=== PATIENT | female | born 1950 | race Caucasian/White ===

== ENCOUNTER 2017-09-28 10:37 | Day surgery (SDC) | payer MEDICARE, BC ==
[2017-09-28] MEDS ORDERED: Sodium Chloride 0.9% 10 ML Syringe FLUSH PRN (11:00)
[2017-09-28] MEDS ORDERED: Lactated Ringers 1,000 ML IV SCH (11:00)
[2017-09-28] MEDS ORDERED: fentaNYL 100 MCG/2 ML SDV ONE ×2 (11:29→11:31)
[2017-09-28] MEDS ORDERED: Midazolam 1 MG/ML 2 ML SDV ONE ×2 (11:29→11:31)
--- NOTE | 2017-09-28 11:29 | PCM.PN ---
- General Info Date of Service: 09/28/17 - Review of Systems Systems Review Comment:: 67-year-old female referred for her initial colonoscopy. She was recently discovered to have a positive FIT test. She is medically stable to proceed today. Her recent history and physical is reviewed and no significant changes are noted. I have discussed the proposed colonoscopy with the patient. Risks such as but not limited to bleeding and GI injury reviewed. She appears to understand and agrees to proceed. - Patient Data Vitals - Most Recent: Last Vital Signs Temp 97.1 F 09/28/17 11:00 Pulse 77 09/28/17 11:00 Resp 18 09/28/17 11:00 BP 131/31 L 09/28/17 11:00 Pulse Ox 95 09/28/17 11:00 Weight - Most Recent: 126.099 kg Lab Results Last 24 Hours: Laboratory Results - last 24 hr 09/28/17 Range/Units 11:13 POC Glucose 109 (65-110) mg/dl Med Orders - Current: Current Medications Lactated Ringer's (Ringers, Lactated) 1,000 mls @ 125 mls/hr IV ASDIRECTED REG Last Admin: 09/28/17 11:19 Dose: 125 mls/hr Sodium Chloride (Saline Flush) 10 ml FLUSH ASDIRECTED PRN PRN Reason: Keep Vein Open - Problem List Review Problem List Initiated/Reviewed/Updated: Yes - My Orders Last 24 Hours: My Active Orders 09/28/17 11:00 Patient Status [ADT] Routine Blood Glucose Check, Bedside [RC] ONETIME Peripheral IV Care [RC] . DIRECTED Verify Patient Consent Obtain [RC] ASDIRECTED Lactated Ringers [Ringers, Lactated] 1,000 ml IV ASDIRECTED Sodium Chloride 0.9% [Saline Flush] 10 ml FLUSH ASDIRECTED PRN Peripheral IV Insertion Adult [OM.PC] Routine - Assessment Assessment:: Positive FIT test - Plan Plan:: Colonoscopy
[2017-09-28] MEDS ORDERED: Propofol 200 MG/20 ML SDV ONE ×2 (11:30→11:31)
--- NOTE | 2017-09-28 12:15 | PCM.OPNOTE ---
- General Post-Op/Procedure Note Date of Surgery/Procedure: 09/28/17 Operative Procedure(s): Colonoscopy with polypectomy Findings: Multiple colon polyps Pre Op Diagnosis: Colon cancer screening. Positive FIT Post-Op Diagnosis: Colon polyps Anesthesia Technique: MAC Primary Surgeon: Nasir Barker Pathology: Colon polyps Output, Urine Amount: 0 EBL in mLs: 0 Complications: None Condition: Good Free Text/Narrative:: Intake & Output 09/27/17 09/28/17 09/28/17 22:59 06:59 14:59 Intake Total 700 Balance 700
[2017-09-28 12:48] VITALS: BP 121/47
--- NOTE | 2017-09-28 16:42 | OR ---
Date of Procedure: 09/28/2017 PREOPERATIVE DIAGNOSIS: Colon cancer screening, positive fecal immunochemical test. POSTOPERATIVE DIAGNOSIS: Multiple colon polyps. OPERATIONS PERFORMED: Colonoscopy with polypectomy. INDICATIONS FOR SURGERY: This 67-year-old female presents today for her initial screening colonoscopy. She was recently noted to have a positive stool FIT test. FINDINGS: On exam today, multiple polyps were noted. There was a 1.2 cm pedunculated polyp of the sigmoid colon, 15 cm from the anal verge; a 7-mm pedunculated polyp in the ascending colon; a 5-mm polyp in the transverse colon; and a 6-mm polyp in the distal transverse colon. There is also a 6-mm polyp noted at the splenic flexure. The remainder of the colon appeared normal. DESCRIPTION OF PROCEDURE: The patient was taken to the operating room. She was given intravenous sedation, and with her in the left lateral decubitus position, digital rectal exam was performed showing no rectal masses. The Olympus colonoscope was inserted into the rectum. Retroflexed examination of the rectal canal was performed. The scope was then carefully advanced under direct visualization through the entire length of the colon until the cecum was reached. Cecal acquisition was confirmed by noting the normal internal cecal anatomy including the appendiceal orifice and the ileocecal valve. After examining the cecum, the light was also noted to transilluminate the abdominal wall and right lower quadrant. After examining the cecum, the scope was slowly withdrawn sequentially re-examining the colonic segments. As the above- described polyps were encountered during insertion and withdrawal of the scope, they were in turn each removed with a cautery snare and retrieved. There was no sign of any bleeding or complication at any of the polypectomy sites. All the polyps will be submitted for pathology. After the examination had been completed and with no sign of any bleeding or other complication, the scope was removed and the patient was taken from the operating room in satisfactory condition. ESTIMATED BLOOD LOSS: Zero. COMPLICATIONS: None. PROGNOSIS: Good. ARNALDO Barker MD /[id number]
== END 2017-09-28 13:15 | disposition home or self-care (01) ==
LOC: LL.SDS 10:37
PROVIDERS: ATTEND Surgery
DX: R19.5 Other fecal abnormalities (principal); D12.2 Benign neoplasm of ascending colon; D12.5 Benign neoplasm of sigmoid colon; D12.3 Benign neoplasm of transverse colon; I13.0 Hypertensive heart and chronic kidney disease with heart failure and stage 1 through stage 4 chronic kidney disease, or unspecified chronic kidney disease; N18.3 Chronic kidney disease, stage 3 (moderate); I50.9 Heart failure, unspecified; Z94.0 Kidney transplant status; E11.22 Type 2 diabetes mellitus with diabetic chronic kidney disease; E66.01 Morbid (severe) obesity due to excess calories; E78.5 Hyperlipidemia, unspecified; F33.42 Major depressive disorder, recurrent, in full remission; Z68.43 Body mass index [BMI] 50.0-59.9, adult; Z79.899 Other long term (current) drug therapy; Z79.84 Long term (current) use of oral hypoglycemic drugs; Z79.82 Long term (current) use of aspirin
CPT/HCPCS: 45385; 82962; J2250; J2704; J3010; J7120; 00811